=== PATIENT | female | born 1980 | race Two or more races ===

== ENCOUNTER 2022-05-16 09:32 | Emergency (ER) | payer MEDICAID ==
[~2022-05-16] VITALS: Ht 152.4 cm; Wt 81.6 kg
--- NOTE | 2022-05-16 09:56 | NUR ---
TO ER BED 6. PT A/O X4, COMPLAINT OF COUGH SINCE SATURDAY. ATTACHED TO MONITOR.
[2022-05-16] MEDS ORDERED: GUAIFENESIN/D-METHORPHAN HB 5 ML UDC ONE (10:00)
[2022-05-16] MEDS ORDERED: GUAIFENESIN/D-METHORPHAN HB 5 ML UDC PO ONE (10:00)
--- NOTE | 2022-05-16 10:00 | NUR ---
PT SEEN BY DR. BARRETT AT BEDSIDE
--- NOTE | 2022-05-16 10:16 | NUR ---
CALLED RT FOR BREATHING TX
[2022-05-16] MEDS ORDERED: ALBUTEROL FS 2.5 MG/3 ML VIAL.NEB ONE (10:17)
[2022-05-16] MEDS ORDERED: IPRATROPIUM NEB FS 0.5 MG/2.5 ML AMPUL.NEB ONE (10:17)
--- NOTE | 2022-05-16 10:21 | NUR ---
RT AT BEDSIDE FOR BREATHING TX
[2022-05-16] MEDS ORDERED: IPRATROPIUM NEB FS 0.5 MG/2.5 ML AMPUL.NEB NEB ONE (10:30)
[2022-05-16] MEDS ORDERED: ALBUTEROL FS 2.5 MG/3 ML VIAL.NEB NEB ONE (10:30)
[2022-05-16] MEDS ORDERED: ALBU18HF2 INH (11:45)
[2022-05-16 11:47] VITALS: BP 134/68
--- NOTE | 2022-05-16 11:50 | NUR ---
Patient discharged to home in stable condition. Written and verbal after care instructions given. Patient verbalizes understanding of instruction.
== END 2022-05-16 11:50 | disposition home or self-care (01) ==
LOC: ER 09:53
DX: R05.9 Cough, unspecified (principal)
CPT/HCPCS: 71045-TC